=== PATIENT | male | born 1995 | race Caucasian/White ===

== ENCOUNTER 2022-02-13 03:57 | Emergency (ER) | payer SELFPAY ==
[~2022-02-13] VITALS: Ht 167.6 cm; Wt 100.0 kg
[2022-02-13 04:30] VITALS: BP 140/80
== END 2022-02-13 04:30 | disposition home or self-care (01) ==
LOC: ER 03:57
DX: F10.129 Alcohol abuse with intoxication, unspecified (principal); Y90.0 Blood alcohol level of less than 20 mg/100 ml
CPT/HCPCS: 99283